=== PATIENT | female | born 1990 | race African-American/Black ===

== ENCOUNTER 2019-02-03 10:49 | Emergency (ER) | payer MEDICAID ==
[~2019-02-03] VITALS: Ht 160 cm; Wt 64.0 kg
[2019-02-03 13:40] VITALS: BP 118/74
== END 2019-02-03 13:41 | disposition home or self-care (01) ==
LOC: ER 11:29
DX: B34.9 Viral infection, unspecified (principal); J34.89 Other specified disorders of nose and nasal sinuses
CPT/HCPCS: 81025; 87804; 99283

== ENCOUNTER 2020-03-28 21:41 | Emergency (ER) | payer MEDICAID ==
[~2020-03-28] VITALS: Ht 152.4 cm; Wt 95.0 kg
[2020-03-28 22:00] VITALS: BP 127/71
[2020-03-28] MEDS ORDERED: ACETAMINOPHEN 325MG TABLET PO ONE (22:30)
== END 2020-03-28 22:33 | disposition home or self-care (01) ==
LOC: ER 22:12
DX: O98.513 Other viral diseases complicating pregnancy, third trimester (principal); U07.1 COVID-19; Z3A.36 36 weeks gestation of pregnancy
CPT/HCPCS: 99281; C9803; U0003

== ENCOUNTER 2020-04-13 16:07 | Observation (INO) | payer OTHER ==
[~2020-04-13] VITALS: Ht 157.5 cm; Wt 83.5 kg
== END 2020-04-13 18:45 | disposition home or self-care (01) ==
LOC: 8 EST LDRP 16:07
PROVIDERS: ADMIT Obstetrics & Gynecology; ATTEND Obstetrics & Gynecology
DX: O26.893 Other specified pregnancy related conditions, third trimester (principal); R10.30 Lower abdominal pain, unspecified; Z3A.38 38 weeks gestation of pregnancy
CPT/HCPCS: 99281; G0378

== ENCOUNTER 2022-07-15 20:36 | Emergency (ER) | payer MEDICAID, OTHER ==
[~2022-07-15] VITALS: Ht 154.9 cm; Wt 68.5 kg
[~2022-07-15 20:36] MED LIST: ERYT1OIN6 EACHEYE; LORA-1087 MT
[2022-07-15 21:01] VITALS: BP 100/57
[2022-07-15 21:57] LABS: BASOPHILS % 1.2 % (0.0-2.0); EOSINOPHILS % 9.2 % (0.0-5.0); HEMATOCRIT. 36.8 % (36.0-48.0); HEMOGLOBIN. 12.4 g/dL (12.0-16.0); LYMPHOCYTES % 33.7 % (20.0-50.0); MEAN CORPUSCULAR HEMOGLOBIN 29.6 pg (28.0-32.0); MEAN CORPUSCULAR VOLUME 87.5 fL (81.0-99.0); MEAN PLATELET VOLUME 8.6 fl (7.4-10.4); MONOCYTES % 6.8 % (2.0-8.0); NEUTROPHILS % 49.1 % (40.0-76.0); PLATELET 219 x1000/uL (130-400); RED BLOOD CELL COUNT 4.21 mill/uL (4.2-5.4); RED CELL DISTRIBUTION WIDTH 12.3 % (11.6-14.6)
[2022-07-15 22:04] LABS: CHLORIDE 105 mEq/L (98-107)
== END 2022-07-16 01:45 | disposition left against medical advice (07) ==
LOC: ER 20:36
DX: O26.891 Other specified pregnancy related conditions, first trimester (principal); Z98.890 Other specified postprocedural states; Z3A.01 Less than 8 weeks gestation of pregnancy
CPT/HCPCS: 36415; 76801; 80053; 84702; 85025; 86850; 86900; 99284

== ENCOUNTER 2023-02-13 10:01 | Emergency (ER) | payer MEDICAID, OTHER ==
[~2023-02-13] VITALS: Ht 165.1 cm; Wt 84.0 kg
[2023-02-13 10:04] VITALS: O2SAT 100
[2023-02-13 10:36] LABS: BASOPHILS % 0.8 % (0.0-2.0); EOSINOPHILS % 5.5 % (0.0-5.0); HEMATOCRIT. 34.9 % (36.0-48.0); HEMOGLOBIN. 11.6 g/dL (12.0-16.0); LYMPHOCYTES % 23.5 % (20.0-50.0); MEAN CORPUSCULAR HEMOGLOBIN 28.2 pg (28.0-32.0); MEAN CORPUSCULAR HGB CONC 33.2 g/dL (31.0-37.0); MEAN CORPUSCULAR VOLUME 84.9 fL (81.0-99.0); MEAN PLATELET VOLUME 8.2 fl (7.4-10.4); MONOCYTES % 6.7 % (2.0-8.0); NEUTROPHILS % 63.5 % (40.0-76.0); PLATELET 189 x1000/uL (130-400); RED BLOOD CELL COUNT 4.11 mill/uL (4.2-5.4); RED CELL DISTRIBUTION WIDTH 14.6 % (11.6-14.6); WHITE BLOOD COUNT 7.6 x1000/uL (4.5-11.0)
[2023-02-13 10:43] LABS: INR 0.9; PROTHROMBIN TIME 9.8 sec (9.6-11.0)
[2023-02-13 10:48] LABS: CHLORIDE 107 mEq/L (98-107); INDEX HEMOLYSI 1 (1-3); INDEX ICTERIC 1 (1-4); INDEX LIPEMIC 1 (1-3); POTASSIUM 3.6 mEq/L (3.5-5.1); SODIUM 138 mEq/L (136-145)
[2023-02-13 10:54] LABS: ALANINE AMINOTRANSFERASE 17 IU/L (13-61); ASPARTATE AMINOTRANSFERASE 16 IU/L (15-37); BILIRUBIN TOTAL 0.3 mg/dL (0.1-1.0); CARBON DIOXIDE 27 mEq/L (21-32); CREATININE 0.4 mg/dL (0.6-1.3); GLUCOSE 112 mg/dL (70-105); PROTEIN TOTAL 7.2 g/dL (6.0-8.3); UREA NITROGEN BLOOD 7 mg/dL (7-21)
[2023-02-13 13:22] VITALS: BP 106/64; PULSE 92; RESP 16; TEMP 98.3
== END 2023-02-13 13:26 | disposition left against medical advice (07) ==
LOC: ER 10:01
DX: O26.893 Other specified pregnancy related conditions, third trimester (principal); Z3A.37 37 weeks gestation of pregnancy; Z98.890 Other specified postprocedural states
CPT/HCPCS: 80053; 85025; 85610; 86850; 86900; 86901; 36415; 76805; 99285; Z7610

== ENCOUNTER 2024-05-06 19:18 | Emergency (ER) | payer OTHER ==
[~2024-05-06] VITALS: Ht 152.4 cm; Wt 77.0 kg
[2024-05-06 19:27] VITALS: PULSE 91; RESP 18; TEMP 36.9; O2SAT 100
[2024-05-06 21:21] LABS: EOSINOPHILS % 8.1 % (0.0-5.0); HEMATOCRIT. 37.1 % (36.0-48.0); HEMOGLOBIN. 12.3 g/dL (12.0-16.0); LYMPHOCYTES % 41.3 % (20.0-50.0); MEAN CORPUSCULAR HEMOGLOBIN 28.9 pg (28.0-32.0); MEAN CORPUSCULAR HGB CONC 33.1 g/dL (31.0-37.0); MEAN CORPUSCULAR VOLUME 87.4 fL (81.0-99.0); MEAN PLATELET VOLUME 9.1 fl (7.4-10.4); MONOCYTES % 7.4 % (2.0-8.0); NEUTROPHILS % 42.2 % (40.0-76.0); PLATELET 242 x1000/uL (130-400); RED BLOOD CELL COUNT 4.24 mill/uL (4.2-5.4); RED CELL DISTRIBUTION WIDTH 13.1 % (11.6-14.6); WHITE BLOOD COUNT 7.1 x1000/uL (4.5-11.0)
[2024-05-06 21:54] LABS: CHLORIDE 108 mEq/L (98-107); POTASSIUM 3.7 mEq/L (3.5-5.1); SODIUM 139 mEq/L (136-145)
[2024-05-06 21:55] LABS: CALCIUM 9.2 mg/dL (8.7-10.4); CARBON DIOXIDE 24 mEq/L (21-32)
[2024-05-06 22:00] LABS: CREATININE 0.7 mg/dL (0.6-1.0); GLUCOSE 83 mg/dL (70-105); UREA NITROGEN BLOOD 13 mg/dL (9-23)
[2024-05-06 22:03] LABS: HCG SCREEN POSITIVE
[2024-05-10] MEDS ORDERED: IBUP-2030 PO (15:24)
== END 2024-05-07 04:03 | disposition left against medical advice (07) ==
LOC: ER 19:18
DX: N93.9 Abnormal uterine and vaginal bleeding, unspecified (principal); Z53.21 Procedure and treatment not carried out due to patient leaving prior to being seen by health care provider; Z98.890 Other specified postprocedural states
CPT/HCPCS: 36415; 80048; 84703; 85025; 86850; 86900

== ENCOUNTER 2024-05-07 22:46 | Inpatient (IN) | payer OTHER ==
[~2024-05-07] VITALS: Ht 152.4 cm; Wt 73.9 kg
[2024-05-08 01:16] LABS: BASOPHILS % 1.7 % (0.0-2.0); EOSINOPHILS % 7.4 % (0.0-5.0); HEMATOCRIT. 37.3 % (36.0-48.0); HEMOGLOBIN. 12.6 g/dL (12.0-16.0); LYMPHOCYTES % 26.9 % (20.0-50.0); MEAN CORPUSCULAR HEMOGLOBIN 29.4 pg (28.0-32.0); MEAN CORPUSCULAR HGB CONC 33.8 g/dL (31.0-37.0); MEAN PLATELET VOLUME 9.9 fl (7.4-10.4); MONOCYTES % 6.2 % (2.0-8.0); NEUTROPHILS % 57.8 % (40.0-76.0); PLATELET 238 x1000/uL (130-400); RED BLOOD CELL COUNT 4.29 mill/uL (4.2-5.4); RED CELL DISTRIBUTION WIDTH 13.5 % (11.6-14.6); WHITE BLOOD COUNT 7.7 x1000/uL (4.5-11.0)
[2024-05-08] MEDS: SODIUM CHLORIDE 0.9% 1,000 ML IV ONE ×2 (01:21→02:29)
[2024-05-08 01:25] LABS: CHLORIDE 106 mEq/L (98-107); POTASSIUM 3.3 mEq/L (3.5-5.1); SODIUM 139 mEq/L (136-145)
[2024-05-08 01:26] LABS: CARBON DIOXIDE 25 mEq/L (21-32)
[2024-05-08 01:27] LABS: CALCIUM 9.8 mg/dL (8.7-10.4)
[2024-05-08 01:31] LABS: CREATININE 0.7 mg/dL (0.6-1.0); GLUCOSE 102 mg/dL (70-105); UREA NITROGEN BLOOD 10 mg/dL (9-23)
[2024-05-08 01:32] LABS: B-HCG QUANTITATIVE 451 mIU/mL (<3)
[2024-05-08 01:33] LABS: ALANINE AMINOTRANSFERASE 9 IU/L (10-49); ALBUMIN 4.5 g/dL (3.2-4.8); ASPARTATE AMINOTRANSFERASE 16 IU/L (<34)
[2024-05-08 01:34] LABS: BILIRUBIN TOTAL 0.4 mg/dL (0.1-1.0); PROTEIN TOTAL 7.4 g/dL (6.0-8.3)
[2024-05-08 01:37] LABS: HCG SCREEN POSITIVE
[2024-05-08 01:54] LABS: BILIRUBIN DIRECT < 0.1 mg/dL (<=3.0)
[2024-05-08 03:45] VITALS: BP 99/63; PULSE 75; RESP 18; TEMP 37
[2024-05-08] MEDS ORDERED: LIDOCAINE HCL 1% 10 MG/ML 10ML VIAL ONE (08:10)
[2024-05-08] MEDS ORDERED: SUCCINYLCHOLINE CHLORIDE 200MG/10ML IV ONE (08:10)
[2024-05-08] MEDS ORDERED: PROPOFOL 200MG/20ML VIAL IV ONE (08:11)
[2024-05-08] MEDS ORDERED: FENTANYL CITRATE/PF 50MCG/ML 2ML VIAL ONE ×2 (08:11)
[2024-05-08] MEDS ORDERED: MIDAZOLAM HCL 2 MG/2 ML VIAL ONE (10:30)
[2024-05-08] MEDS ORDERED: ONDANSETRON HCL 4MG/2ML INJ ONE (10:48)
[2024-05-08] MEDS ORDERED: CEFAZOLIN SODIUM 1000MG/VIAL ONE (10:48)
[2024-05-08] MEDS ORDERED: ROCURONIUM BROMIDE 10MG/ML VIAL 5ML IV ONE (10:53)
[2024-05-08] MEDS ORDERED: SUGAMMADEX SODIUM 200MG/2ML VIAL IV ONE (10:58)
[2024-05-08] MEDS ORDERED: ACETAMINOPHEN 650MG SUPP PR PRN (11:30)
[2024-05-08] MEDS: HYDROMORPHONE HCL/PF 1MG/ML INJ IV PRN (11:52)
[2024-05-08] MEDS ORDERED: NALOXONE HCL 0.4MG/ML VIAL IV PRN (12:15)
[2024-05-08] MEDS: ONDANSETRON HCL 4MG/2ML INJ IV PRN (12:26)
[2024-05-08 13:41] VITALS: BP 102/64; PULSE 73; RESP 18; TEMP 36.8; O2SAT 100
[2024-05-08] MEDS: MORPHINE SULFATE 4 MG/ML INJ (FOR IV/IM USE) IV PRN (14:58)
[2024-05-08] MEDS: DEXT 5%/0.45% NACL 1000ML 1,000 ML IV SCH (15:24)
[2024-05-08] MEDS: CEFAZOLIN 1000MG PREMIX 50 ML IV SCH (15:26)
[2024-05-08 20:00] VITALS: BP 94/64; PULSE 78; RESP 17; TEMP 36.2; O2SAT 98
[2024-05-08] MEDS: IBUPROFEN 800MG TABLET PO PRN (22:32)
[2024-05-09] VITALS (7 sets, daily range): BP systolic 86–99; BP diastolic 48–57; PULSE 65–81; RESP 18–19; TEMP 36.5–37; O2SAT 95–100
[2024-05-09 06:52] LABS: BASOPHILS % 0.9 % (0.0-2.0); EOSINOPHILS % 7.4 % (0.0-5.0); HEMATOCRIT. 33.1 % (36.0-48.0); HEMOGLOBIN. 11.2 g/dL (12.0-16.0); LYMPHOCYTES % 28.5 % (20.0-50.0); MEAN CORPUSCULAR HEMOGLOBIN 29.2 pg (28.0-32.0); MEAN CORPUSCULAR HGB CONC 33.7 g/dL (31.0-37.0); MEAN CORPUSCULAR VOLUME 86.8 fL (81.0-99.0); MONOCYTES % 8.5 % (2.0-8.0); NEUTROPHILS % 54.7 % (40.0-76.0); PLATELET 201 x1000/uL (130-400); RED BLOOD CELL COUNT 3.82 mill/uL (4.2-5.4); RED CELL DISTRIBUTION WIDTH 13.4 % (11.6-14.6); WHITE BLOOD COUNT 6.6 x1000/uL (4.5-11.0)
[2024-05-09] MEDS: ACETAMINOPHEN WITH CODEINE 300/30MG TABLET PO PRN (23:10)
[2024-05-10] VITALS: BP 98/52; PULSE 71; RESP 18; TEMP 36.9; O2SAT 98
[2024-05-10 04:00] VITALS: BP 89/50; PULSE 68; RESP 18; TEMP 36.9; O2SAT 98
[2024-05-10 08:00] VITALS: BP 95/48; PULSE 73; RESP 19; TEMP 36.9; O2SAT 98
[2024-05-10 12:00] VITALS: BP 100/66; PULSE 77; RESP 19; TEMP 36.9; O2SAT 96
[2024-05-10] MEDS ORDERED: IBUP-2030 PO (15:24)
[2024-05-10 15:28] VITALS: BP 98/47; PULSE 73; TEMP 98.4; O2SAT 98
== END 2024-05-10 16:51 | disposition home or self-care (01) | DRG 547 ==
LOC: ER 22:46 → 8EST 05-08 02:13
PROVIDERS: ADMIT Obstetrics & Gynecology; ATTEND Obstetrics & Gynecology
PROC: 0UB50ZZ Excision of Right Fallopian Tube, Open Approach (ICD-10-PCS; principal; 2024-05-08)
PROC: 0DNW0ZZ Release Peritoneum, Open Approach (ICD-10-PCS; 2024-05-08)
PROC: 10D20ZZ Extraction of Products of Conception, Ectopic, Open Approach (ICD-10-PCS; 2024-05-08)
DX: O00.101 Right tubal pregnancy without intrauterine pregnancy (principal); K66.0 Peritoneal adhesions (postprocedural) (postinfection); Z91.048 Other nonmedicinal substance allergy status; N83.201 Unspecified ovarian cyst, right side; Z98.891 History of uterine scar from previous surgery
CPT/HCPCS: 36415; 76801; 80048; 80076; 84702; 84703; 85025; 86850; 86900; 88302; 99291; J0330; J0690; J1171; J2003; J2250; J2270; J2405; J2704; J3010; J3490; J7030